=== PATIENT | male | born 1980 | race Caucasian/White ===

== ENCOUNTER 2021-01-23 09:36 | Emergency (ER) | payer MEDICAID ==
[~2021-01-23] VITALS: Ht 185.4 cm; Wt 138.0 kg
[2021-01-23 09:42] VITALS: BP 123/72
[2021-01-23] MEDS ORDERED: KETOROLAC 30 MG/1 ML IM ONE (10:00)
[2021-01-23] MEDS ORDERED: ACETAMINOPHEN 500 MG TABLET PO ONE (10:00)
[2021-01-23] MEDS ORDERED: CYCLOBENZAPRINE 10 MG TABLET PO ONE (10:00)
[2021-01-23] MEDS ORDERED: CYCLOBENZAPRINE 10 MG TABLET ONE (10:28)
[2021-01-23] MEDS ORDERED: ACETAMINOPHEN 500 MG TABLET ONE (10:28)
[2021-01-23] MEDS ORDERED: KETOROLAC 30 MG/1 ML ONE (10:28)
--- NOTE | 2021-01-23 10:37 | NUR ---
Patient medicated per [facility], given discharge instructions and they have confirmed that they understand the instructions. Patient ambulatory with steady gait from ED with friend.
== END 2021-01-23 10:38 | disposition home or self-care (01) ==
LOC: ED 10:12
DX: S39.012A Strain of muscle, fascia and tendon of lower back, initial encounter (principal); X58.XXXA Exposure to other specified factors, initial encounter; Y93.89 Activity, other specified; Y92.89 Other specified places as the place of occurrence of the external cause; Y99.8 Other external cause status
CPT/HCPCS: 96372; 99283; J1885

== ENCOUNTER 2021-01-25 21:56 | Emergency (ER) | payer MEDICAID ==
[~2021-01-25] VITALS: Ht 185.4 cm; Wt 134.9 kg
[2021-01-25 22:01] VITALS: BP 132/78
[2021-01-25 23:16] LABS: BASOPHILS % (AUTO) 1 % (0-1); EOSINOPHILS % (AUTO) 1 % (1-7); LYMPHOCYTES % (AUTO) 14 % (22-44); MD NO; MEAN CORPUSCULAR HEMOGLOBIN 30.1 pg (27.5-34.5); MEAN CORPUSCULAR HGB CONC 33.4 g/dL (33.2-36.2); MEAN PLATELET VOLUME 9.3 fL (7.4-10.4); MONOCYTES % (AUTO) 9 % (2-9); NEUTROPHILS % (AUTO) 76 % (42-75); PLATELET COUNT 238 x10^3/uL (130-400); RED BLOOD COUNT 4.79 x10^6/uL (4.38-5.82); RED CELL DISTRIBUTION WIDTH 14.8 % (9.4-14.8)
[2021-01-25 23:25] LABS: ALBUMIN 3.9 g/dL (3.4-5.0); ANION GAP 4 mmol/L (5-15); CALCIUM 9.1 mg/dL (8.5-10.1); CHLORIDE 106 mmol/L (98-107)
[2021-01-25 23:28] LABS: ALANINE AMINOTRANSFERASE 65 U/L (12-78); ALKALINE PHOSPHATASE 87 U/L (45-117); BILIRUBIN,TOTAL 1.4 mg/dL (0.2-1.0); CREATININE 1.14 mg/dL (0.7-1.3)
[2021-01-25] MEDS ORDERED: DIAZEPAM 5 MG TABLET ONE (23:39)
[2021-01-25] MEDS ORDERED: SUMATRIPTAN 25 MG TABLET ONE (23:39)
[2021-01-25] MEDS ORDERED: IBUPROFEN 600 MG TABLET ONE (23:40)
[2021-01-26] MEDS ORDERED: DIAZEPAM 5 MG TABLET PO ONE
[2021-01-26] MEDS ORDERED: IBUPROFEN 600 MG TABLET PO ONE
[2021-01-26] MEDS ORDERED: SUMATRIPTAN 50 MG TABLET PO PRN
== END 2021-01-26 00:30 | disposition home or self-care (01) ==
LOC: ED 01-26 00:08
DX: M54.5 Low back pain (principal); G43.C0 Periodic headache syndromes in child or adult, not intractable; R06.00 Dyspnea, unspecified; Z72.9 Problem related to lifestyle, unspecified; R94.31 Abnormal electrocardiogram [ECG] [EKG]
CPT/HCPCS: 36415; 71045; 80053; 85025; 93005; 99285

== ENCOUNTER 2021-01-27 02:42 | Emergency (ER) | payer MEDICAID ==
[~2021-01-27] VITALS: Ht 185.4 cm; Wt 130.9 kg
--- NOTE | 2021-01-27 03:20 | NUR ---
PT BIBA. EMS STATES PT CALLED WITH SCROTUM PAIN AND ABDOMENT PAIN FROM CELLULITIS. EMS NOTED BLOOD ON LEGS FROM CELLULITIS. PT BROUGHT TO [facility] FOR BUGS IN HAIR UPON ARRIVAL. PT HAIR AND BODY SHAMPPOED AND CLEANED THOUROUGHLY UNDER PANUS. REDDNESS AND SORE TO PT'S TOUCH. PT BROUGHT TO ROOM AND ULTRASOUND CALLED.
--- NOTE | 2021-01-27 03:55 | NUR ---
ULTRASOUND AT BEDSIDE
--- NOTE | 2021-01-27 03:57 | NUR ---
EMS ALSO GAVE 1G OF ACETOMINOPHEN AND 600MG OF IBPROFEN BEFORE ARRIVAL. PT STATES IS FROM A 06/21 TO A 01/19.
--- NOTE | 2021-01-27 05:39 | NUR ---
PT RESTING WITH BILATERAL CHEST RISE AND FALL GOOD PULSE OXEGENATION AND INSPIRATION EXPERATION.
[2021-01-27 06:25] VITALS: BP 127/69
== END 2021-01-27 06:59 | disposition home or self-care (01) ==
LOC: ED 05:35
DX: N50.811 Right testicular pain (principal); N50.812 Left testicular pain; L30.8 Other specified dermatitis; Z72.9 Problem related to lifestyle, unspecified
CPT/HCPCS: 76870; 99284

== ENCOUNTER 2021-02-14 22:01 | Emergency (ER) | payer MEDICAID ==
[~2021-02-14] VITALS: Ht 185.4 cm; Wt 127.0 kg
--- NOTE | 2021-02-15 00:12 | NUR ---
AGENCY SALES REPRESENTATIVE: PT AMBULATED STEADILY TO ROOM WITH RN
[2021-02-15] MEDS ORDERED: FLUCONAZOLE 100 MG TABLET PO ONE (00:30)
[2021-02-15 00:41] LABS: BASOPHILS % (AUTO) 1 % (0-1); EOSINOPHILS % (AUTO) 1 % (1-7); LYMPHOCYTES % (AUTO) 24 % (22-44); MEAN CORPUSCULAR HEMOGLOBIN 30.4 pg (27.5-34.5); MEAN CORPUSCULAR HGB CONC 33.1 g/dL (33.2-36.2); MEAN PLATELET VOLUME 9.1 fL (7.4-10.4); MONOCYTES % (AUTO) 10 % (2-9); NEUTROPHILS % (AUTO) 64 % (42-75); PLATELET COUNT 217 x10^3/uL (130-400); RED BLOOD COUNT 4.88 x10^6/uL (4.38-5.82); RED CELL DISTRIBUTION WIDTH 15.1 % (9.4-14.8)
[2021-02-15 00:51] LABS: ALBUMIN 3.9 g/dL (3.4-5.0); ANION GAP 3 mmol/L (5-15); CHLORIDE 108 mmol/L (98-107); CREATININE 1.18 mg/dL (0.7-1.3); MD NO
[2021-02-15] MEDS ORDERED: FLUCONAZOLE 100 MG TABLET ONE (01:11)
--- NOTE | 2021-02-15 02:12 | NUR ---
TASK RN: THIS RN GAVE PT D/C INSTRUCTIONS. PT VEBALIZED UNDERSTANDING, PT UNHOOKED FROM MONITORS
[2021-02-15 02:14] VITALS: BP 110/69
== END 2021-02-15 02:37 | disposition home or self-care (01) ==
LOC: ED 02-15 02:00
DX: B37.89 Other sites of candidiasis (principal); F17.210 Nicotine dependence, cigarettes, uncomplicated
CPT/HCPCS: 36415; 80048; 82040; 85025; 99283

== ENCOUNTER 2021-02-18 15:11 | Emergency (ER) | payer MEDICAID ==
[~2021-02-18] VITALS: Ht 185.4 cm; Wt 125.0 kg
--- NOTE | 2021-02-18 15:20 | NUR ---
BIBA FOR CELLULITIS WITH BLEEDING THAT STARTED TODAY "NEAR MY GROIN AND GOES DOWN". PT STATES HE WAS SEEN HERE 4 DAYS AGO BUT IS UNABLE TO FILL HIS ANTIBIOTIC PRESCRIPTION DUE TO NOT GETTING PAID UNTILL THE END OF THIS MONTH. PT IS HOMELESS.
[2021-02-18] MEDS ORDERED: NYSTATIN TOPICAL POWDER 15GM TP PRN (15:30)
[2021-02-18 15:39] LABS: BASOPHILS % (AUTO) 1 % (0-1); EOSINOPHILS % (AUTO) 1 % (1-7); LYMPHOCYTES % (AUTO) 17 % (22-44); MEAN CORPUSCULAR HEMOGLOBIN 30.7 pg (27.5-34.5); MEAN PLATELET VOLUME 9.3 fL (7.4-10.4); MONOCYTES % (AUTO) 15 % (2-9); NEUTROPHILS % (AUTO) 66 % (42-75); PLATELET COUNT 194 x10^3/uL (130-400); RED BLOOD COUNT 4.65 x10^6/uL (4.38-5.82); RED CELL DISTRIBUTION WIDTH 15.2 % (9.4-14.8)
[2021-02-18 15:50] LABS: ALANINE AMINOTRANSFERASE 47 U/L (12-78); ALBUMIN 3.5 g/dL (3.4-5.0); ANION GAP 7 mmol/L (5-15); CALCIUM 8.8 mg/dL (8.5-10.1); CHLORIDE 103 mmol/L (98-107); CREATININE 1.06 mg/dL (0.7-1.3)
[2021-02-18 15:52] LABS: ALKALINE PHOSPHATASE 72 U/L (45-117); TOTAL PROTEIN 7.3 g/dL (6.4-8.2)
[2021-02-18 17:28] VITALS: BP 112/68
== END 2021-02-18 17:30 | disposition home or self-care (01) ==
LOC: ED 15:41
DX: B37.89 Other sites of candidiasis (principal); Z59.0 Homelessness
CPT/HCPCS: 36415; 80053; 85025; 99283

== ENCOUNTER 2021-03-07 15:22 | Emergency (ER) | payer MEDICAID ==
[~2021-03-07] VITALS: Ht 185.4 cm; Wt 127.3 kg
[2021-03-07] MEDS ORDERED: SODIUM CHLORIDE 0.9% 1,000ML IVBOLUS ONE (15:30)
[2021-03-07] MEDS ORDERED: KETOROLAC 30 MG/1 ML IVPush ONE (16:00)
[2021-03-07] MEDS ORDERED: KETOROLAC 30 MG/1 ML ONE (16:07)
[2021-03-07 16:09] LABS: BASOPHILS % (AUTO) 1 % (0-1); EOSINOPHILS % (AUTO) 0 % (1-7); LYMPHOCYTES % (AUTO) 21 % (22-44); MEAN CORPUSCULAR HEMOGLOBIN 30.4 pg (27.5-34.5); MEAN CORPUSCULAR HGB CONC 32.9 g/dL (33.2-36.2); MEAN PLATELET VOLUME 9.3 fL (7.4-10.4); MONOCYTES % (AUTO) 8 % (2-9); NEUTROPHILS % (AUTO) 71 % (42-75); PLATELET COUNT 262 x10^3/uL (130-400); RED BLOOD COUNT 4.58 x10^6/uL (4.38-5.82); RED CELL DISTRIBUTION WIDTH 15.7 % (9.4-14.8)
[2021-03-07 16:13] LABS: ALBUMIN 3.3 g/dL (3.4-5.0); ANION GAP 5 mmol/L (5-15); CALCIUM 8.8 mg/dL (8.5-10.1); CHLORIDE 109 mmol/L (98-107); CREATININE 1.07 mg/dL (0.7-1.3)
[2021-03-07 16:57] VITALS: BP 127/72
--- NOTE | 2021-03-07 17:12 | NUR ---
PT REC'VD DISCHARGE INSTRUCTIONS AND EDUCATION.
--- NOTE | 2021-03-07 17:17 | NUR ---
PT HAD NO FURTHER QUESTIONS. PT AMBULATED TO CT AREA, STEADY GAIT.
== END 2021-03-07 17:19 | disposition home or self-care (01) ==
LOC: ED 16:43
DX: T67.5XXA Heat exhaustion, unspecified, initial encounter (principal); R55 Syncope and collapse; X58.XXXA Exposure to other specified factors, initial encounter; Y93.89 Activity, other specified; Y92.89 Other specified places as the place of occurrence of the external cause; Y99.8 Other external cause status
CPT/HCPCS: 36415; 80048; 82040; 85025; 93005; 96361; 96374; 99284; J1885; J7030

== ENCOUNTER 2021-03-13 12:04 | Emergency (ER) | payer MEDICAID ==
[~2021-03-13] VITALS: Ht 185.4 cm; Wt 123.0 kg
[2021-03-13 12:08] VITALS: BP 142/82
--- NOTE | 2021-03-13 12:11 | NUR ---
PT BIB EMS FOR CHEST PAIN THAT STARTED WHILE HE AT THE LIBRARY. "BURNING SENSATION". PT DENIES ANY PAIN CURRENTLY AND JUST WANTS "TO BE CHECKED OUT". PT CONNECTED TO ALL MONITORS. RESTING [facility]. AWAITING
== END 2021-03-13 12:39 | disposition home or self-care (01) ==
LOC: ED 12:23
DX: R07.89 Other chest pain (principal); R94.31 Abnormal electrocardiogram [ECG] [EKG]; F17.200 Nicotine dependence, unspecified, uncomplicated
CPT/HCPCS: 99281; 99282; 99283

== ENCOUNTER 2021-03-15 21:57 | Emergency (ER) | payer MEDICAID ==
[~2021-03-15] VITALS: Ht 185.4 cm; Wt 125.0 kg
[2021-03-15 22:08] VITALS: BP 135/86
--- NOTE | 2021-03-15 22:21 | NUR ---
ASSUMED CARE OF PATIENT. PATIENT BIB [facility] FOR SI. PT REPORTS HE HAS BEEN HAVING THOUGHTS OF SI FOR 20 YEARS AND HIS GIRLFRIEND SAID IF HE DID NOT GET HELP SHE WOULD LEAVE HIM. PT REPORTS HE IS HOMELESS WITH HIS GIRLFRIEND. PT ALSO REPORTS HE IS SUPPOSED TO BE ON ABX FOR A SKIN INFECTION ON HIS FOOT. PT C/O REDNESS UNDER HIS PANIS. VS STABLE. SITTER AT DOOR. BELONGINGS LOCKED UP: SHIRT, SHORTS AND BRACELET.
--- NOTE | 2021-03-15 22:45 | NUR ---
PT HAS BEEN SEEN BY LIANA Vasques NP. PT REPORTS IS NOT REALLY SUICIDAL, AND DOES NOT WISH TO BE BUT FELT LIKE HE HAD TO COME SO HIS GIRLFRIEND WOULD STAY WITH HIM. PT IS NOW DENIES SI. PT HAS NO HISTORY OF SI. PT DOES WANT RESOURCES FOR COUNSELING. WILL CONTINUE TO MONITOR.
--- NOTE | 2021-03-15 23:11 | NUR ---
PT REPORTS HE HAS BEEN PRESCRIBED KEFLEX AND NYSTATIN AND WILL CONTINUE HIS HOME MEDICATIONS. PT IS A&O X4. PT DID NOT HAVE ANY SHOES. PT WAS PROVIDED NONSLIP SOCKS. PT WAS GIVEN A [employer] [facility] HOME PER HIS REQUEST. PT GIVEN COMMUNITY RESOURCES, PT TO FOLLOW UP WITH [facility]. PT DISCHARGED PER LIANA Vasques NP.
== END 2021-03-15 23:23 | disposition home or self-care (01) ==
LOC: ED 22:00
DX: Z72.89 Other problems related to lifestyle (principal); F17.210 Nicotine dependence, cigarettes, uncomplicated
CPT/HCPCS: 99406